=== PATIENT | male | born 1955 | race American Indian/Alaskan Native ===

== ENCOUNTER 2016-10-17 03:09 | Inpatient (IN) | payer MEDICARE ==
[2016-10-17] MEDS ORDERED: NACL 0.9% 1000 ML 1,000 ML IV ONE ×6 (03:18→09:20)
--- NOTE | 2016-10-17 04:01 | Emergency Department Report ---
ED Altered Mental Status HPI - General Chief Complaint: Altered Mental Status Stated Complaint: UNRESPONSIVE Time Seen by Provider: 10/17/16 03:17 Source: EMS Mode of arrival: Stretcher Limitations: Altered Mental Status - History of Present Illness Initial Comments: 61-year-old male presents to the emergency department via EMS from a local snf after reportedly being found unresponsive. EMS states that the patient is unresponsive to any stimuli. Per report, the patient is nonverbal and minimally responsive at baseline. Further history is unable to be obtained from the patient due to his clinical condition. MD Complaint: altered mental status, decreased responsiveness -: unknown Severity: severe Consistency of Symptoms: constant Context: history of similar presen Treatments Prior to Arrival: IV fluid - Related Data Allergies Allergy/AdvReac Type Severity Reaction Status Date / Time No Known Allergies Allergy Verified 10/17/16 04:31 ED Review of Systems ROS: Stated complaint: UNRESPONSIVE Other details as noted in HPI Comment: Unobtainable due to pts medical conditions ED Past Medical Hx - Past Medical History Previous Medical History?: Yes Hx Hypertension: Yes Additional medical history: Multiple sclerosis - Surgical History Additional Surgical History: Unknown - Family History Family history: other (unknown) - Social History Smoking Status: Unknown if ever smoked ED Physical Exam - General Limitations: Altered Mental Status General appearance: obtunded (apparently at baseline) - Head Head exam: Present: atraumatic, normocephalic - Eye Eye exam: Present: normal appearance, PERRL, EOMI - ENT ENT exam: Present: normal exam, normal orophraynx, mucous membranes moist - Neck Neck exam: Present: normal inspection, full ROM. Absent: tenderness - Respiratory Respiratory exam: Present: normal lung sounds bilaterally. Absent: respiratory distress - Cardiovascular Cardiovascular Exam: Present: regular rate, normal rhythm, normal heart sounds - GI/Abdominal GI/Abdominal exam: Present: soft, normal bowel sounds. Absent: distended, tenderness - Extremities Exam Extremities exam: Present: normal inspection. Absent: full ROM (contractures noted to all 4 extremities) - Back Exam Back exam: Present: normal inspection, full ROM. Absent: tenderness - Neurological Exam Neurological exam: Present: other (patient unresponsive to verbal or painful stimuli.) - Skin Skin exam: Present: warm, dry, other (multiple stage IV decubitus ulcers noted to bilateral hips, left heel, bilateral buttocks, and sacral region) ED Course Vital Signs 10/17/16 03:18 Pulse Rate 102 H Respiratory 10 L Rate Blood Pressure 65/30 O2 Sat by Pulse 99 Oximetry - Lab Data Result diagrams: 10/17/16 04:28 10/17/16 04:28 Lab Results 10/17/16 10/17/16 10/17/16 Range/Units 04:28 04:28 04:28 WBC 42.5 H* (4.5-11.0) K/mm3 RBC 3.27 L (3.65-5.03) M/mm3 Hgb 7.6 L (11.8-15.2) gm/dl Hct 25.0 L (35.5-45.6) % MCV 77 L (84-94) fl MCH 23 L (28-32) pg MCHC 31 L (32-34) % RDW 17.4 H (13.2-15.2) % Plt Count 892 H (140-440) K/mm3 [place] % (Auto) 5.0 (0.0-7.3) % Eos % (Auto) 0.0 (0.0-4.3) % Potter # 2.1 H (0.0-0.8) K/mm3 Seg Neutrophils # 38.4 H (1.8-7.7) K/mm3 Sodium 141 (137-145) mmol/L Potassium 5.1 H (3.6-5.0) mmol/L Chloride 102.2 (98-107) mmol/L Carbon Dioxide 21 L (22-30) mmol/L Anion Gap 23 mmol/L BUN 58 H (9-20) mg/dL Creatinine 2.6 H (0.8-1.5) mg/dL Estimated GFR 30 ml/min BUN/Creatinine Ratio 22.30 % Glucose 93 (75-100) mg/dL Lactic Acid 2.6 H* (0.7-2.0) mmol/L Calcium 7.9 L (8.4-10.2) mg/dL Total Bilirubin 0.4 (0.1-1.2) mg/dL AST 87 H (5-40) units/L ALT 65 H (7-56) units/L Alkaline Phosphatase 102 (35-129) units/L Total Protein 7.4 (6.3-8.2) g/dL Albumin 2.2 L (3.9-5) g/dL Albumin/Globulin Ratio 0.4 % - Radiology Data Radiology results: image reviewed interpreted by me: Chest x-ray reveals no acute cardiopulmonary abnormality. - Medical Decision Making Lab and imaging results reviewed. Sanderson catheter has been placed by nursing staff with no urine output. Patient's blood pressure has increased to systolic in the 70s with less than 1 L of fluid administered. Giving additional IV fluids. It appears that the patient is severely dehydrated and malnourished from his physical exam and lab findings. Patient is to be admitted by the hospitalist for fluid rehydration. - Differential Diagnosis debility, occult infection, dehydration Critical care attestation.: If time is entered above; I have spent that time in minutes in the direct care of this critically ill patient, excluding procedure time. ED Disposition Clinical Impression: Severe dehydration Acute renal failure Qualifiers: Acute renal failure type: with acute tubular necrosis Qualified Code(s): N17.0 - Acute kidney failure with tubular necrosis Disposition: OP ADMITTED IP TO THIS HOSP Is pt being admited?: Yes Condition: Stable Time of Disposition: 05:52
[2016-10-17 05:04] LABS: Hemoglobin 7.6 gm/dl (11.8-15.2); Mean Corpuscular HGB Conc 31 % (32-34); Mean Corpuscular Volume 77 fl (84-94); Platelet Count 892 K/mm3 (140-440); Red Blood Count 3.27 M/mm3 (3.65-5.03); Red Cell Distribution Width 17.4 % (13.2-15.2)
[2016-10-17 05:06] LABS: Mean Corpuscular Hemoglobin 23 pg (28-32)
[2016-10-17 05:07] LABS: White Blood Count 42.5 K/mm3 (4.5-11.0)
[2016-10-17 05:11] LABS: Albumin 2.2 g/dL (3.9-5); Albumin/Globulin Ratio 0.4 %; BUN/Creatinine Ratio 22.3; Bilirubin,Total 0.4 mg/dL (0.1-1.2); Calcium 7.9 mg/dL (8.4-10.2); Chloride 102.2 mmol/L (98-107); Potassium 5.1 mmol/L (3.6-5.0); Total Protein 7.4 g/dL (6.3-8.2)
[2016-10-17 06:41] LABS: Anisocytosis 1+; Basophils % (Manual) 0 % (0.0-1.8); Blastocytes % (Manual) 0 %; Eosinophils % (Manual) 0 % (0.0-4.3); Hypochromasia 1+; Total Cells Counted Percent 2.5
[2016-10-17 06:42] LABS: Elliptocytes Rare; Polychromasia Rare
[2016-10-17 06:43] LABS: Dohle Bodies 1+
[2016-10-17 06:44] LABS: Diff Status Complete; Platelet Estimate Appears Increased
--- NOTE | 2016-10-17 07:22 | XRay Report ---
AP CHEST: HISTORY: Altered mental status AP view of the chest demonstrates a normal mediastinal and cardiac contour with clear lungs and normal bony and soft tissue structures. IMPRESSION: Unremarkable AP chest.
--- NOTE | 2016-10-17 09:07 | Admit Criteria Form ---
Admission Criteria Documentation: MENTAL STATUS CHANGE Clinical Indications for Inpatient Care (Place 'X' for any and all applicable criteria): Ongoing inpatient care may be needed for ANY ONE of the following(1)(2)(3)(5)(6) : [X ]I. Suspected serious etiology (eg, medical disorder, NET TRAINER event) of mental status change [ ]II. Danger to self or others not manageable at lower level of care [ ]III. Grave disability (eg, inability to perform self care necessary at lower level of care) [ ]IV. Agitation or inappropriate behavior interfering with care for primary condition (eg, attempting to discontinue lines or drains prematurely, unable to cooperate with respiratory care) [ ]V. Delirium [A] [D][E] as described by ANY ONE of the following(26): [ ]a) Delirium due to alcohol or sedative [F] withdrawal [ ]b) Delirium of uncertain etiology that has not responded to appropriate empiric treatment [ ]c) Delirium that prevents performance of a life-sustaining function (eg, feeding or hydrating oneself) [ X]. General contraindications and/or Inappropriate clinical situations for Observational Care in patients with Mental Status Change, when ANY ONE of the following is required: [X ]a) Prediction of prolongation of LOS based on ANY ONE of the following may be considered as a contraindication for observational care 2, 3, 4, 5, 6, 7, 8, 9, 10, 11 [ ]i) Age > 65 yrs. [ X]ii) Patient arriving by ambulance [ ]iii) Patient with high acuity [ ]iv) Patient requiring vital sign monitoring [ ]v) Patient on IV medication [ ]b) Systolic blood pressures 180mmHg 3,12 [ ]c) Patient with altered mental status including delirium and other alteration of consciousness, (3) [ ]d) Patient whose discharge disposition will be to a senior living home or rehabilitation home should not be managed in Emergency Department Observation Unit. CMS rule requires 3 days hospital stay before such placement.3,13 [ ]e) Patient with failure to thrive due to broad array of etiologies 3,16,17 [ ]f) Inability to ambulate 3,14 Extended stay beyond goal length of stay for the primary condition may be needed until ALL of the following are present(3)(5): [ ]a) Underlying medical etiology of mental status change is absent, or has been established and adequately treated [ ]b) Danger to self or others is absent or manageable at lower level of care. [ ]c) Behavior crisis management, including physical or chemical restraints, is not required or available at lower level of car [ ]d) Substance or alcohol withdrawal is absent or manageable at lower level of care. [ ]e) Behavioral symptoms (eg, agitation, somnolence, inappropriate behavior) are absent, or are manageable at lower level of care. The original [facility] [employer] content created by [facility] has been revised. The portions of the content which have been revised are identified through the use of italic text or in bold, and [facility] has neither reviewed nor approved the modified material. All other unmodified content is copyright [facility]. Please see references footnoted in the original [facility] edition 2016 Admission Criteria Met: Yes
[2016-10-17] MEDS ORDERED: DULCOLAX PR PRN (09:30)
[2016-10-17] MEDS ORDERED: MILK OF MAGNESIA PO PRN (09:30)
[2016-10-17] MEDS ORDERED: TYLENOL PO PRN (09:30)
[2016-10-17] MEDS ORDERED: ZOFRAN IV PRN (09:30)
[2016-10-17] MEDS: LEVAQUIN 500MG/100ML 100 ML IV SCH (09:53)
[2016-10-17] MEDS ORDERED: NACL 0.9% 1000 ML 1,000 ML IV SCH (10:00)
[2016-10-17] MEDS ORDERED: VANCOMYCIN PHARMACY TO DOSE IV SCH (10:00)
[2016-10-17] MEDS ORDERED: ZOSYN/NS 4.5GM/100ML 100 ML IV SCH (10:00)
--- NOTE | 2016-10-17 10:11 | History and Physical Report ---
History of Present Illness Chief complaint: Low blood pressure History of present illness: Patient is obtunded therefore history was taken from his next of kin, his baby' s mother Goran is a 61-year-old male with past medical history of multiple sclerosis which she's had for over 30 years. He is usually bed bound and has contractures lives with his son's mother. At baseline he is bedbound contracted , but his mind is sharp, he has good memory, he is very communicative and has good judgment. Other notes he was placed in a alf for a short period of time for RESPITE, during this period he has been noted to be less responsive , more fatigued, more tired. Prior to being sent to the hospital he was noted to have low blood pressure low pulse rate and completely not responsive. Of note he has recurrence decubitus ulcers all over his body. He's had these months now since May, his family notes that he have completely resolved in the past only to recur. Past History Past Medical History: other (multiple sclerosis) Past Surgical History: Other (left knee surgery) Social history: no significant social history, lives with family Family history: no significant family history Medications and Allergies Allergies Allergy/AdvReac Type Severity Reaction Status Date / Time No Known Allergies Allergy Verified 10/17/16 04:31 Home Medications Medication Instructions Recorded Confirmed Last Taken Type Baclofen [Lioresal] 10 mg PO TID 10/17/16 10/17/16 Unknown History Lisinopril [Zestril] 20 mg PO QDAY 10/17/16 10/17/16 Unknown History Morphine Sulfate [Morphine Sulfate 30 mg PO Q8H PRN 10/17/16 10/17/16 Unknown History ER] Ondansetron [Zofran Odt] 4 mg PO Q4H 10/17/16 10/17/16 Unknown History Pregabalin [Lyrica] 100 mg PO BID 10/17/16 10/17/16 Unknown History Active Meds: Active Medications Acetaminophen (Tylenol) 650 mg PO Q4H PRN PRN Reason: Pain MILD(1-3)/Fever >100.5/CARMEN Bisacodyl (Dulcolax) 10 mg [place] QDAY PRN PRN Reason: Constipation unrelieved by MOM Sodium Chloride (Nacl 0.9% 1000 Ml) 1,000 mls @ 150 mls/hr IV DIRECT SHIKHA Sodium Chloride (Nacl 0.9% 1000 Ml) 1,000 mls @ 999 mls/hr IV ONCE ONE Stop: 10/17/16 10:19 Last Admin: 10/17/16 09:57 Dose: 999 mls/hr Levofloxacin/Dextrose (Levaquin 500mg/100ml) 100 mls @ 100 mls/hr IV Q24H SHIKHA Last Admin: 10/17/16 09:53 Dose: 100 mls/hr Piperacillin Sod/Tazobactam Sod (Zosyn/Ns 2.25 Gm/50ml) 50 mls @ 100 mls/hr IV Q8HR SHIKHA Vancomycin HCl (Vancomycin/Ns 500 Mg/100 Ml) 100 mls @ 66.667 mls/hr IV ONCE.ED ONE Stop: 10/17/16 12:29 Magnesium Hydroxide (Milk Of Magnesia) 30 ml PO Q4H PRN PRN Reason: Constipation Ondansetron HCl (Zofran) 4 mg IV Q8H PRN PRN Reason: N/V unrelieved by Sanna Vancomycin HCl (Vancomycin Pharmacy To Dose) 1 each IV PKCONSULT SHIKHA PRN Reason: Protocol Review of Systems ROS unobtainable: due to mental status Exam - Physical Exam Narrative exam: General: Patient is obtunded, nonresponsive HEENT: MMM, EOMI cardiac: S1-S2 heard lungs: clear to auscultation, abdomen: soft, nontender, nondistended bowel sounds positive extremities: no edema clubbing or cyanosis Skin: Multiple decubitus ulcers of different stages in bilateral hip bilateral Botox, left heel, sacrum Neuro: Contractures in all 4 extremities, nonresponsive - Constitutional Vitals: Temp Pulse Resp BP Pulse Ox 91 H 12 76/36 92 10/17/16 09:00 10/17/16 09:16 10/17/16 09:00 10/17/16 09:16 Results - Labs CBC & Chem 7: 10/17/16 04:28 10/17/16 04:28 Labs: Laboratory Last Values WBC 42.5 K/mm3 (4.5-11.0) H* 10/17/16 04:28 RBC 3.27 M/mm3 (3.65-5.03) L 10/17/16 04:28 Hgb 7.6 gm/dl (11.8-15.2) L 10/17/16 04:28 Hct 25.0 % (35.5-45.6) L 10/17/16 04:28 MCV 77 fl (84-94) L 10/17/16 04:28 MCH 23 pg (28-32) L 10/17/16 04:28 MCHC 31 % (32-34) L 10/17/16 04:28 RDW 17.4 % (13.2-15.2) H 10/17/16 04:28 Plt Count 892 K/mm3 (140-440) H 10/17/16 04:28 [place] % (Auto) 5.0 % (0.0-7.3) 10/17/16 04:28 Eos % (Auto) 0.0 % (0.0-4.3) 10/17/16 04:28 [place] # 2.1 K/mm3 (0.0-0.8) H 10/17/16 04:28 Add Manual Diff Complete 10/17/16 04:28 Total Counted 200 10/17/16 04:28 Seg Neuts % (Manual) 94.5 % (40.0-70.0) H 10/17/16 04:28 Band Neutrophils % 0 % 10/17/16 04:28 Lymphocytes % (Manual) 2.5 % (13.4-35.0) L 10/17/16 04:28 Reactive Lymphs % (Man) 0 % 10/17/16 04:28 Monocytes % (Manual) 2.5 % (0.0-7.3) 10/17/16 04:28 Eosinophils % (Manual) 0 % (0.0-4.3) 10/17/16 04:28 Basophils % (Manual) 0 % (0.0-1.8) 10/17/16 04:28 Metamyelocytes % 0 % 10/17/16 04:28 Myelocytes % 0.5 % 10/17/16 04:28 Promyelocytes % 0 % 10/17/16 04:28 Blast Cells % 0 % 10/17/16 04:28 Nucleated RBC % Not Reportable 10/17/16 04:28 Seg Neutrophils # 38.4 K/mm3 (1.8-7.7) H 10/17/16 04:28 Seg Neutrophils # Man 40.2 K/mm3 (1.8-7.7) H 10/17/16 04:28 Band Neutrophils # 0.0 K/mm3 10/17/16 04:28 Lymphocytes # (Manual) 1.1 K/mm3 (1.2-5.4) L 10/17/16 04:28 Abs React Lymphs (Man) 0.0 K/mm3 10/17/16 04:28 Monocytes # (Manual) 1.1 K/mm3 (0.0-0.8) H 10/17/16 04:28 Eosinophils # (Manual) 0.0 K/mm3 (0.0-0.4) 10/17/16 04:28 Basophils # (Manual) 0.0 K/mm3 (0.0-0.1) 10/17/16 04:28 Metamyelocytes # 0.0 K/mm3 10/17/16 04:28 Myelocytes # 0.2 K/mm3 10/17/16 04:28 Promyelocytes # 0.0 K/mm3 10/17/16 04:28 Blast Cells # 0.0 K/mm3 10/17/16 04:28 WBC Morphology Not Reportable 10/17/16 04:28 Hypersegmented Neuts Not Reportable 10/17/16 04:28 Hyposegmented Neuts Not Reportable 10/17/16 04:28 Hypogranular Neuts Not Reportable 10/17/16 04:28 Smudge Cells Not Reportable 10/17/16 04:28 Toxic Granulation Not Reportable 10/17/16 04:28 Toxic Vacuolation Not Reportable 10/17/16 04:28 Dohle Bodies 1+ 10/17/16 04:28 Pelger-Huet Anomaly Not Reportable 10/17/16 04:28 Erich Rods Not Reportable 10/17/16 04:28 Platelet Estimate Appears increased 10/17/16 04:28 Clumped Platelets Not Reportable 10/17/16 04:28 Plt Clumps, EDTA Not Reportable 10/17/16 04:28 Large Platelets Not Reportable 10/17/16 04:28 Giant Platelets Not Reportable 10/17/16 04:28 Platelet Satelliting Not Reportable 10/17/16 04:28 Plt Morphology Comment Not Reportable 10/17/16 04:28 RBC Morphology Not Reportable 10/17/16 04:28 Dimorphic RBCs Not Reportable 10/17/16 04:28 Polychromasia Rare 10/17/16 04:28 Hypochromasia 1+ 10/17/16 04:28 Poikilocytosis Not Reportable 10/17/16 04:28 Anisocytosis 1+ 10/17/16 04:28 Microcytosis Not Reportable 10/17/16 04:28 Macrocytosis Not Reportable 10/17/16 04:28 Spherocytes Not Reportable 10/17/16 04:28 Pappenheimer Bodies Not Reportable 10/17/16 04:28 Sickle Cells Not Reportable 10/17/16 04:28 Target Cells Not Reportable 10/17/16 04:28 Tear Drop Cells Not Reportable 10/17/16 04:28 Ovalocytes Not Reportable 10/17/16 04:28 Helmet Cells Not Reportable 10/17/16 04:28 [place] Bodies Not Reportable 10/17/16 04:28 [place] Rings Not Reportable 10/17/16 04:28 [place] Cells Not Reportable 10/17/16 04:28 Bite Cells Not Reportable 10/17/16 04:28 Crenated Cell Not Reportable 10/17/16 04:28 Elliptocytes Rare 10/17/16 04:28 Acanthocytes (Spur) Not Reportable 10/17/16 04:28 Rouleaux Not Reportable 10/17/16 04:28 Hemoglobin C Crystals Not Reportable 10/17/16 04:28 Schistocytes Not Reportable 10/17/16 04:28 Malaria parasites Not Reportable 10/17/16 04:28 [place] Bodies Not Reportable 10/17/16 04:28 Hem Pathologist Commnt No 10/17/16 04:28 Sodium 141 mmol/L (137-145) 10/17/16 04:28 Potassium 5.1 mmol/L (3.6-5.0) H 10/17/16 04:28 Chloride 102.2 mmol/L (98-107) 10/17/16 04:28 Carbon Dioxide 21 mmol/L (22-30) L 10/17/16 04:28 Anion Gap 23 mmol/L 10/17/16 04:28 BUN 58 mg/dL (9-20) H 10/17/16 04:28 Creatinine 2.6 mg/dL (0.8-1.5) H 10/17/16 04:28 Estimated GFR 30 ml/min 10/17/16 04:28 BUN/Creatinine Ratio 22.30 % 10/17/16 04:28 Glucose 93 mg/dL (75-100) 10/17/16 04:28 Lactic Acid 2.6 mmol/L (0.7-2.0) H* 10/17/16 04:28 Calcium 7.9 mg/dL (8.4-10.2) L 10/17/16 04:28 Total Bilirubin 0.4 mg/dL (0.1-1.2) 10/17/16 04:28 AST 87 units/L (5-40) H 10/17/16 04:28 ALT 65 units/L (7-56) H 10/17/16 04:28 Alkaline Phosphatase 102 units/L (35-129) 10/17/16 04:28 Total Protein 7.4 g/dL (6.3-8.2) 10/17/16 04:28 Albumin 2.2 g/dL (3.9-5) L 10/17/16 04:28 Albumin/Globulin Ratio 0.4 % 10/17/16 04:28 - Imaging and Cardiology Chest x-ray: image reviewed (no infiltrate) Assessment and Plan Assessment and plan: This is a 61-year-old man who was sent from alf for hypotension and altered mental status 1. Sepsis Source is most likely from multiple decubitus ulcers, obtain blood cultures and urine cultures, chest x-ray shows no infiltrates Broad-spectrum antibiotics, follow-up cultures, he patient's blood pressure improves and surgery consults for debridements We'll give him a total of 6 L bolus and then put on standing IV fluids, PICC line team to place PICC line, patient may need pressors if blood pressure does not improve 2. Metabolic encephalopathy Treat underlying cause, treat sepsis and hypotension aggressively 3. Acute kidney injury Continue IV fluids, multiple attempts to place Sanderson were unsuccessful, patient appears to have a stricture, urology consulted 4. Hyperkalemia Most likely due to acute kidney injury and obstructive uropathy, urology called for Sanderson placement, continue IV fluids 5. Multiple decubitus ulcers Wound care consult, if patient's improves, we'll consult surgery for debridement of decubitus ulcers 6. Anemia transfuse to keep Hg above 10 I have spoken in length with his next of kin/ POA Aissatou Valdez and, at . Even though she understands that he has very poor prognosis, she states that even within the past week he has stated that he wants to be full code and have aggressive treatment. Therefore patient will be kept full code, admitted to ICU for treatment of sepsis Critical care time spent 35 minutes Plan of care discussed with patient/family: Yes
[2016-10-17 10:54] LABS: ISTAT Base Excess -12; ISTAT HCO3 15.8; ISTAT PCO2 40.9 (35-45); ISTAT PH 7.195 (7.35-7.45); ISTAT PO2 66 (80-105); ISTAT SO2 87; ISTAT TCO2 17
[2016-10-17] MEDS ORDERED: VANCOMYCIN/NS 500 MG/100 ML 100 ML IV ONE (11:00)
[2016-10-17] MEDS: ZOSYN/NS 2.25 GM/50ML 50 ML IV SCH ×3 (11:19→22:30)
--- NOTE | 2016-10-17 11:19 | Consultation ---
History of Present Illness - Reason for Consult Consult date: 10/17/16 - History of Present Illness Goran is a 61-year-old male with past medical history of multiple sclerosis which she's had for over 30 years. He is usually bed bound and has contractures lives with his son's mother. At baseline he is bedbound contracted , but his mind is sharp, he has good memory, he is very communicative and has good judgment. Other notes he was placed in a [facility] for a short period of time for RESPITE, during this period he has been noted to be less responsive , more fatigued, more tired. Prior to being sent to the hospital he was noted to have low blood pressure low pulse rate and completely not responsive. Of note he has recurrence decubitus ulcers all over his body. per nurse - pt had non draining pedroza - removed no pedroza at time of exam wire pedroza & attempt at [facility] [place] tip cath unsuccessful spt place with cloudy urine returned (send for culture) A/P urethral stricture vs pedroza trauma continue spt needs cysto when stable Past History Past Medical History: other (multiple sclerosis) Past Surgical History: Other (left knee surgery) Social history: no significant social history, lives with family Family history: no significant family history Medications and Allergies Allergies Allergy/AdvReac Type Severity Reaction Status Date / Time No Known Allergies Allergy Verified 10/17/16 04:31 Home Medications Medication Instructions Recorded Confirmed Last Taken Type Baclofen [Lioresal] 10 mg PO TID 10/17/16 10/17/16 Unknown History Lisinopril [Zestril] 20 mg PO QDAY 10/17/16 10/17/16 Unknown History Morphine Sulfate [Morphine Sulfate 30 mg PO Q8H PRN 10/17/16 10/17/16 Unknown History ER] Ondansetron [Zofran Odt] 4 mg PO Q4H 10/17/16 10/17/16 Unknown History Pregabalin [Lyrica] 100 mg PO BID 10/17/16 10/17/16 Unknown History Active Meds: Active Medications Acetaminophen (Tylenol) 650 mg PO Q4H PRN PRN Reason: Pain MILD(1-3)/Fever >100.5/CARMEN Bisacodyl (Dulcolax) 10 mg [place] QDAY PRN PRN Reason: Constipation unrelieved by MOM Sodium Chloride (Nacl 0.9% 1000 Ml) 1,000 mls @ 150 mls/hr IV DIRECT SHIKHA Levofloxacin/Dextrose (Levaquin 500mg/100ml) 100 mls @ 100 mls/hr IV Q24H [facility] Last Admin: 10/17/16 09:53 Dose: 100 mls/hr Piperacillin Sod/Tazobactam Sod (Zosyn/Ns 2.25 Gm/50ml) 50 mls @ 100 mls/hr IV Q8HR [facility] Vancomycin HCl (Vancomycin/Ns 500 Mg/100 Ml) 100 mls @ 66.667 mls/hr IV ONCE.ED ONE Stop: 10/17/16 12:29 Magnesium Hydroxide (Milk Of Magnesia) 30 ml PO Q4H PRN PRN Reason: Constipation Ondansetron HCl (Zofran) 4 mg IV Q8H PRN PRN Reason: N/V unrelieved by Sanna Vancomycin HCl (Vancomycin Pharmacy To Dose) 1 each IV PKCONSULT SHIKHA PRN Reason: Protocol Exam - Constitutional Vitals: Temp Pulse Resp BP Pulse Ox 89 10 L 64/35 100 10/17/16 11:00 10/17/16 11:00 10/17/16 11:00 10/17/16 11:00 Results - Labs CBC & Chem 7: 10/17/16 04:28 10/17/16 04:28 Labs: Abnormal lab results 10/17/16 Range/Units 10:45 POC ABG pH 7.195 L (7.35-7.45) POC ABG pO2 66 L (80-105)
[2016-10-17 12:16] LABS: Bilirubin,Urine NEG (Negative); Blood,Urine MOD (Negative); Ketones,Urine NEG (Negative); Leukocyte Esterase,Urine MOD (Negative); Nitrite,Urine NEG (Negative); Urobilinogen,Urine < 2.0 mg/dL (<2.0)
[2016-10-17 12:23] LABS: WBC,Urine > 182.0 /HPF (0.0-6.0)
[2016-10-17] MEDS ORDERED: NACL 0.9% 500 ML 500 ML IV ONE (12:42)
--- NOTE | 2016-10-17 14:12 | XRay Report ---
PORTABLE CHEST INDICATION: Left arm PICC placement. COMPARISON: 3:27 AM earlier today. FINDINGS: Portable, frontal chest radiograph, 1:55 PM, 10/17/2016 demonstrates new left upper extremity PICC tip at the cavoatrial junction. Mild increased right basilar atelectasis and subtle bibasilar haziness/possible layering pleural fluid. New obscuration of entire left and part right hemidiaphragm. Stable cardiomediastinal silhouette. Right hemidiaphragm again elevated. EKG leads. Stable bones. CONCLUSION: 1. Interval uncomplicated left upper extremity PICC placement. 2. New hazy bibasilar opacities, as described. Thank you for the opportunity to participate in this patient's care.
[2016-10-17] MEDS: LEVOPHED DRIP 4 MG/NS 250 ML 250 ML IV SCH ×3 (15:45→23:47)
[2016-10-17] MEDS ORDERED: NACL 0.9% 500 ML IR ONE ×2 (16:47→18:31)
[2016-10-17] MEDS: SODIUM BICARBONATE 150 MEQ in D5W 1,000 ML IV SCH (17:27)
[2016-10-17] MEDS ORDERED: NACL 0.9% 500 ML 500 ML ONE (18:31)
[2016-10-17] MEDS ORDERED: NACL 0.9% 1000 ML 1,000 ML ONE (21:42)
--- NOTE | 2016-10-18 00:58 | Consultation ---
REASON FOR CONSULTATION: Urinary retention. REFERRING PHYSICIANS: Michelle Welch MD HISTORY OF PRESENT ILLNESS: This 61-year-old gentleman presented to the Emergency Room from a local correction after being found unresponsive. He was brought to the Emergency Room, resuscitated with fluids and is somewhat more arousable. PAST MEDICAL HISTORY: He has a history of multiple sclerosis with contractures, decubitus ulcers, hypertension. PAST SURGICAL HISTORY: Unremarkable. ALLERGIES: He has no known drug allergies. PHYSICAL EXAMINATION: GENERAL: The patient is not responsive. VITAL SIGNS: BP is 76/36, respirations are 12, pulse 91. ABDOMEN: Contracted abdomen, cachectic with contractures and decubitus ulcers, bandages in place. GENITOURINARY: Circumcised phallus. Testes descended. Attempts to place a 0.035 Glidewire were unsuccessful. I could palpate his bladder. He was given lidocaine gel, a small 5 mm incision in the suprapubic area. Suprapubic catheter was placed with cloudy urine, which was sent for urine culture. The 2-0 silk was used to secure the suprapubic catheter, 2-inch silk tape was also used on the abdomen to try to provide security as well. 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 Continue the catheter at this point, needs cystoscopy once stable. JOB# [id number] ISIDRO/GHAZALA
[2016-10-18] MEDS: LEVOPHED DRIP 4 MG/NS 250 ML 250 ML IV SCH ×4 (04:08→11:37)
[2016-10-18 05:32] LABS: ISTAT Base Excess -11; ISTAT PCO2 52.9 (35-45); ISTAT PH 7.139 (7.35-7.45); ISTAT PO2 101 (80-105); ISTAT SO2 95; ISTAT TCO2 20
[2016-10-18] MEDS ORDERED: SODIUM BICARBONATE IV STA (06:20)
[2016-10-18] MEDS: ZOSYN/NS 2.25 GM/50ML 50 ML IV SCH ×3 (06:22→22:17)
[2016-10-18 08:48] LABS: Hematocrit 34.2 % (35.5-45.6); Hemoglobin 10.7 gm/dl (11.8-15.2); Mean Corpuscular HGB Conc 31 % (32-34); Mean Corpuscular Volume 79 fl (84-94); Platelet Count 647 K/mm3 (140-440); Red Blood Count 4.33 M/mm3 (3.65-5.03); Red Cell Distribution Width 17.3 % (13.2-15.2)
[2016-10-18 08:57] LABS: Mean Corpuscular Hemoglobin 25 pg (28-32); White Blood Count 36.3 K/mm3 (4.5-11.0)
[2016-10-18 09:03] LABS: Albumin 1.8 g/dL (3.9-5); Albumin/Globulin Ratio 0.5 %; Bilirubin,Total 0.5 mg/dL (0.1-1.2); Calcium 6.3 mg/dL (8.4-10.2); Chloride 115.1 mmol/L (98-107); Potassium 3.5 mmol/L (3.6-5.0); Total Protein 5.6 g/dL (6.3-8.2)
[2016-10-18 10:21] LABS: Basophils % (Manual) 0 % (0.0-1.8); Blastocytes % (Manual) 0 %; Eosinophils % (Manual) 0 % (0.0-4.3); Total Cells Counted Percent 1.5
[2016-10-18 10:22] LABS: Anisocytosis 1+; Diff Status Complete; Dohle Bodies 1+; Elliptocytes Rare; Hypochromasia 1+; Polychromasia Rare
[2016-10-18 10:23] LABS: Platelet Estimate Appears Increased
[2016-10-18] MEDS: LEVAQUIN 500MG/100ML 100 ML IV SCH (10:40)
[2016-10-18] MEDS: SODIUM BICARBONATE 150 MEQ in D5W 1,000 ML IV SCH (10:40)
--- NOTE | 2016-10-18 12:27 | Consultation ---
History of Present Illness - Reason for Consult Consult date: 10/18/16 Sepsis with shock Requesting physician: DENA MCNULTY - History of Present Illness 61 y/o male from a hospice respit, admitted with acute renal failure, hypotension, and altered mental status. Patient is completely unresponsive and not able to give any history. From chart and nursing facility, patient has end stage MS and was on home hospice but as a full code. He was brought to a respit facitlity to be there for 5 days and then the plan was to return home. Patient presented to the ED on Monday night, contracted with multiple decubs. Picc line was placed and patient started on levophed drip which he is currently at max dosing. He has very slow breaths at about 5-8 per minute. He remains unresponsive. He is on bicarb drip and abx therapy. No family present at the bedside. Past History Past Medical History: other (multiple sclerosis) Past Surgical History: Other (left knee surgery) Social history: no significant social history, lives with family Family history: no significant family history Medications and Allergies Allergies Allergy/AdvReac Type Severity Reaction Status Date / Time No Known Allergies Allergy Verified 10/17/16 04:31 Home Medications Medication Instructions Recorded Confirmed Last Taken Type Baclofen [Lioresal] 10 mg PO TID 10/17/16 10/17/16 Unknown History Lisinopril [Zestril] 20 mg PO QDAY 10/17/16 10/17/16 Unknown History Morphine Sulfate [Morphine Sulfate 30 mg PO Q8H PRN 10/17/16 10/17/16 Unknown History ER] Ondansetron [Zofran Odt] 4 mg PO Q4H 10/17/16 10/17/16 Unknown History Pregabalin [Lyrica] 100 mg PO BID 10/17/16 10/17/16 Unknown History Active Meds: Active Medications Acetaminophen (Tylenol) 650 mg PO Q4H PRN PRN Reason: Pain MILD(1-3)/Fever >100.5/CARMEN Bisacodyl (Dulcolax) 10 mg [place] QDAY PRN PRN Reason: Constipation unrelieved by MOM Levofloxacin/Dextrose (Levaquin 500mg/100ml) 100 mls @ 100 mls/hr IV Q24H SHIKHA Last Admin: 10/18/16 10:40 Dose: 100 mls/hr Piperacillin Sod/Tazobactam Sod (Zosyn/Ns 2.25 Gm/50ml) 50 mls @ 100 mls/hr IV Q8HR SHIKHA Last Admin: 10/18/16 06:22 Dose: 100 mls/hr Sodium Bicarbonate 150 meq/ (Dextrose) 1,150 mls @ 75 mls/hr IV DIRECT SHIKHA Last Admin: 10/18/16 10:40 Dose: 75 mls/hr Norepinephrine (Levophed Drip 4 Mg/Ns 250 Ml) 250 mls @ 7.5 mls/hr IV TITR SHIKHA ; 2 MCG/MIN PRN Reason: Protocol Last Admin: 10/18/16 11:37 Dose: 112.5 mls/hr Vancomycin HCl (Vancomycin/Ns 500 Mg/100 Ml) 100 mls @ 66.667 mls/hr IV Q24HR SHIKHA Norepinephrine 8 mg/ Sodium (Chloride) 250 mls @ 3.75 mls/hr IV TITR SHIKHA; 2 MCG /MIN PRN Reason: Protocol Magnesium Hydroxide (Milk Of Magnesia) 30 ml PO Q4H PRN PRN Reason: Constipation Ondansetron HCl (Zofran) 4 mg IV Q8H PRN PRN Reason: N/V unrelieved by Sanna Vancomycin HCl (Vancomycin Pharmacy To Dose) 1 each IV PKCONSULT SHIKHA PRN Reason: Protocol Review of Systems ROS unobtainable: due to mental status Exam - Constitutional Vitals: Temp Pulse Resp BP Pulse Ox 98.3 F 85 8 L 115/50 100 10/18/16 05:46 10/18/16 11:45 10/18/16 11:45 10/18/16 11:45 10/18/16 11:45 General appearance: Present: other (unresponsive) - Respiratory Respiratory: bilateral: diminished - Cardiovascular Rhythm: regular - Extremities Extremities: abnormal Extremity abnormal: other (contractures of all extremities) - Abdominal General gastrointestinal: Present: soft Male genitourinary: Present: deferred - Rectal Rectal Exam: deferred - Integumentary Integumentary: Present: dry - Musculoskeletal Musculoskeletal: other (contractures) Results - Labs CBC & Chem 7: 10/18/16 08:30 10/18/16 08:30 Labs: Abnormal lab results 10/17/16 10/17/16 10/18/16 Range/Units 11:57 15:37 05:17 WBC (4.5-11.0) K/mm3 Hgb (11.8-15.2) gm/dl Hct (35.5-45.6) % MCV (84-94) fl MCH (28-32) pg MCHC (32-34) % RDW (13.2-15.2) % Plt Count (140-440) K/mm3 Seg Neuts % (Manual) (40.0-70.0) % Lymphocytes % (Manual) (13.4-35.0) % Seg Neutrophils # Man (1.8-7.7) K/mm3 Lymphocytes # (Manual) (1.2-5.4) K/mm3 POC ABG pH 7.139 L (7.35-7.45) POC ABG pCO2 52.9 H (35-45) Sodium (137-145) mmol/L Potassium (3.6-5.0) mmol/L Chloride (98-107) mmol/L Carbon Dioxide (22-30) mmol/L BUN (9-20) mg/dL Creatinine (0.8-1.5) mg/dL Glucose (75-100) mg/dL Calcium (8.4-10.2) mg/dL AST (5-40) units/L Total Protein (6.3-8.2) g/dL Albumin (3.9-5) g/dL Urine WBC (Auto) > 182.0 H (0.0-6.0) /HPF Crossmatch See Detail 10/18/16 10/18/16 Range/Units 08:30 08:30 WBC 36.3 H (4.5-11.0) K/mm3 Hgb 10.7 L D (11.8-15.2) gm/dl Hct 34.2 L D (35.5-45.6) % MCV 79 L (84-94) fl MCH 25 L (28-32) pg MCHC 31 L (32-34) % RDW 17.3 H (13.2-15.2) % Plt Count 647 H (140-440) K/mm3 Seg Neuts % (Manual) 89.0 H (40.0-70.0) % Lymphocytes % (Manual) 0 L (13.4-35.0) % Seg Neutrophils # Man 32.3 H (1.8-7.7) K/mm3 Lymphocytes # (Manual) 0.0 L (1.2-5.4) K/mm3 POC ABG pH (7.35-7.45) POC ABG pCO2 (35-45) Sodium 151 H D (137-145) mmol/L Potassium 3.5 L D (3.6-5.0) mmol/L Chloride 115.1 H (98-107) mmol/L Carbon Dioxide 19 L (22-30) mmol/L BUN 48 H (9-20) mg/dL Creatinine 1.6 H (0.8-1.5) mg/dL Glucose 105 H (75-100) mg/dL Calcium 6.3 L D (8.4-10.2) mg/dL AST 51 H (5-40) units/L Total Protein 5.6 L D (6.3-8.2) g/dL Albumin 1.8 L (3.9-5) g/dL Urine WBC (Auto) (0.0-6.0) /HPF Crossmatch - Imaging and Cardiology Chest x-ray: image reviewed (no evidence of acute lung disease) Assessment and Plan 61 y/o male with end stage MS, currently on home hospice but full code, admitted with sepsis with severe shock and encephalopathy with metabolic acidosis. 1. Long discussion with EYAL Valdez over the phone. She is the mother of the patient's son. She states that she is aware of how sick the patient is currently and that this state is likely not reversible and if he were to make it, that his baseline would be worse than before and that his quality of life would be even more worse than before. She has elected to not have chest compressions or intubation but would like to continue vasopressor therapy. She asks for this as their son is currently incarcerated and she is attempting to get him here to pay his respects to this father. We will continue the current care veronica the wishes of the POA. Overall prognosis remains poor and despite our efforts, I explained to her that he could undergo cardiac arrest and pass at any time. She expresses understanding of this. CCt 31 minutes.
[2016-10-18] MEDS: VANCOMYCIN/NS 500 MG/100 ML 100 ML IV SCH (12:36)
--- NOTE | 2016-10-18 12:53 | Progress Note ---
Assessment and Plan Assessment and plan: This is a 61-year-old man who was sent from custodial for hypotension and altered mental status 1. Sepsis Source is most likely from multiple decubitus ulcers, obtain blood cultures and urine cultures, chest x-ray shows no infiltrates Broad-spectrum antibiotics, follow-up cultures, if patient stabilizes we'll consider surgery consult for possible debridement of decubitus ulcers Continue bicarbonate drip, continue broad-spectrum antibiotics, continue sepsis protocol 2. Metabolic encephalopathy Treat underlying cause, treat sepsis and hypotension aggressively 3. Acute kidney injury Likely due to sepsis and obstructive uropathy, status post Sanderson placement and IV resuscitation, her improving 4. Hyperkalemia Likely due to obstructive uropathy and acute kidney injury, improving 5. Multiple decubitus ulcers Wound care consult, if patient's improves, we'll consult surgery for debridement of decubitus ulcers 6. Anemia Status post transfusion, keep hemoglobin above 10 I have spoken in length with his next of kin/ POA Aissatou Valdez and, at . Even though she understands that he has very poor prognosis, she now states that she would like for him to be made DO NOT RESUSCITATE, however she will also continue vasopressors and full medical therapy. She is hoping to keep him alive so that his son who is incarcerated will be able to pay his respects Critical care time spent 35 minutes History Interval history: Patient continues to be obtunded, requiring vasopressors towards the maximum up to the Levophed drip. Hospitalist Physical - Physical exam Narrative exam: General: Patient is obtunded, nonresponsive HEENT: MMM, EOMI cardiac: S1-S2 heard lungs: clear to auscultation, abdomen: soft, nontender, nondistended bowel sounds positive extremities: no edema clubbing or cyanosis Skin: Multiple decubitus ulcers of different stages in bilateral hip bilateral Buttocks, left heel, sacrum Neuro: Contractures in all 4 extremities, nonresponsive - Constitutional Vitals: Temp Pulse Resp BP Pulse Ox 98.3 F 85 8 L 115/50 100 10/18/16 05:46 10/18/16 11:45 10/18/16 11:45 10/18/16 11:45 10/18/16 11:45 General appearance: Present: other (unresponsive) Results - Labs CBC & Chem 7: 10/18/16 08:30 10/18/16 08:30 Labs: Laboratory Last Values WBC 36.3 K/mm3 (4.5-11.0) H 10/18/16 08:30 RBC 4.33 M/mm3 (3.65-5.03) 10/18/16 08:30 Hgb 10.7 gm/dl (11.8-15.2) L D 10/18/16 08:30 Hct 34.2 % (35.5-45.6) L D 10/18/16 08:30 MCV 79 fl (84-94) L 10/18/16 08:30 MCH 25 pg (28-32) L 10/18/16 08:30 MCHC 31 % (32-34) L 10/18/16 08:30 RDW 17.3 % (13.2-15.2) H 10/18/16 08:30 Plt Count 647 K/mm3 (140-440) H 10/18/16 08:30 [place] % (Auto) 5.0 % (0.0-7.3) 10/17/16 04:28 Eos % (Auto) 0.0 % (0.0-4.3) 10/17/16 04:28 [place] # 2.1 K/mm3 (0.0-0.8) H 10/17/16 04:28 Add Manual Diff Complete 10/18/16 08:30 Total Counted 200 10/18/16 08:30 Seg Neutrophils % Project Engineering Director 10/18/16 08:30 Seg Neuts % (Manual) 89.0 % (40.0-70.0) H 10/18/16 08:30 Band Neutrophils % 9.5 % 10/18/16 08:30 Lymphocytes % (Manual) 0 % (13.4-35.0) L 10/18/16 08:30 Reactive Lymphs % (Man) 0 % 10/18/16 08:30 Monocytes % (Manual) 1.5 % (0.0-7.3) 10/18/16 08:30 Eosinophils % (Manual) 0 % (0.0-4.3) 10/18/16 08:30 Basophils % (Manual) 0 % (0.0-1.8) 10/18/16 08:30 Metamyelocytes % 0 % 10/18/16 08:30 Myelocytes % 0 % 10/18/16 08:30 Promyelocytes % 0 % 10/18/16 08:30 Blast Cells % 0 % 10/18/16 08:30 Nucleated RBC % Not Reportable 10/18/16 08:30 Seg Neutrophils # 38.4 K/mm3 (1.8-7.7) H 10/17/16 04:28 Seg Neutrophils # Man 32.3 K/mm3 (1.8-7.7) H 10/18/16 08:30 Band Neutrophils # 3.4 K/mm3 10/18/16 08:30 Lymphocytes # (Manual) 0.0 K/mm3 (1.2-5.4) L 10/18/16 08:30 Abs React Lymphs (Man) 0.0 K/mm3 10/18/16 08:30 Monocytes # (Manual) 0.5 K/mm3 (0.0-0.8) 10/18/16 08:30 Eosinophils # (Manual) 0.0 K/mm3 (0.0-0.4) 10/18/16 08:30 Basophils # (Manual) 0.0 K/mm3 (0.0-0.1) 10/18/16 08:30 Metamyelocytes # 0.0 K/mm3 10/18/16 08:30 Myelocytes # 0.0 K/mm3 10/18/16 08:30 Promyelocytes # 0.0 K/mm3 10/18/16 08:30 Blast Cells # 0.0 K/mm3 10/18/16 08:30 WBC Morphology Not Reportable 10/18/16 08:30 Hypersegmented Neuts Not Reportable 10/18/16 08:30 Hyposegmented Neuts Not Reportable 10/18/16 08:30 Hypogranular Neuts Not Reportable 10/18/16 08:30 Smudge Cells Not Reportable 10/18/16 08:30 Toxic Granulation Not Reportable 10/18/16 08:30 Toxic Vacuolation Not Reportable 10/18/16 08:30 Dohle Bodies 1+ 10/18/16 08:30 Pelger-Huet Anomaly Not Reportable 10/18/16 08:30 Erich Rods Not Reportable 10/18/16 08:30 Platelet Estimate Appears increased 10/18/16 08:30 Clumped Platelets Not Reportable 10/18/16 08:30 Plt Clumps, EDTA Not Reportable 10/18/16 08:30 Large Platelets Not Reportable 10/18/16 08:30 Giant Platelets Not Reportable 10/18/16 08:30 Platelet Satelliting Not Reportable 10/18/16 08:30 Plt Morphology Comment Not Reportable 10/18/16 08:30 RBC Morphology Not Reportable 10/18/16 08:30 Dimorphic RBCs Not Reportable 10/18/16 08:30 Polychromasia Rare 10/18/16 08:30 Hypochromasia 1+ 10/18/16 08:30 Poikilocytosis Not Reportable 10/18/16 08:30 Anisocytosis 1+ 10/18/16 08:30 Microcytosis Not Reportable 10/18/16 08:30 Macrocytosis Not Reportable 10/18/16 08:30 Spherocytes Not Reportable 10/18/16 08:30 Pappenheimer Bodies Not Reportable 10/18/16 08:30 Sickle Cells Not Reportable 10/18/16 08:30 Target Cells Not Reportable 10/18/16 08:30 Tear Drop Cells Not Reportable 10/18/16 08:30 Ovalocytes Not Reportable 10/18/16 08:30 Helmet Cells Not Reportable 10/18/16 08:30 [place] Bodies Not Reportable 10/18/16 08:30 Fisher Rings Not Reportable 10/18/16 08:30 [place] Cells Not Reportable 10/18/16 08:30 Bite Cells Not Reportable 10/18/16 08:30 Crenated Cell Not Reportable 10/18/16 08:30 Elliptocytes Rare 10/18/16 08:30 Acanthocytes (Spur) Not Reportable 10/18/16 08:30 Rouleaux Not Reportable 10/18/16 08:30 Hemoglobin C Crystals Not Reportable 10/18/16 08:30 Schistocytes Not Reportable 10/18/16 08:30 Malaria parasites Not Reportable 10/18/16 08:30 Yandel Bodies Not Reportable 10/18/16 08:30 Hem Pathologist Commnt No 10/18/16 08:30 POC ABG pH 7.139 (7.35-7.45) L 10/18/16 05:17 POC ABG pCO2 52.9 (35-45) H 10/18/16 05:17 POC ABG pO2 101 (80-105) 10/18/16 05:17 POC ABG HCO3 18.0 10/18/16 05:17 POC ABG Total CO2 20 10/18/16 05:17 POC ABG O2 Sat 95 10/18/16 05:17 POC ABG Base Excess -11 10/18/16 05:17 FiO2 100 % 10/18/16 05:17 Sodium 151 mmol/L (137-145) H D 10/18/16 08:30 Potassium 3.5 mmol/L (3.6-5.0) L D 10/18/16 08:30 Chloride 115.1 mmol/L (98-107) H 10/18/16 08:30 Carbon Dioxide 19 mmol/L (22-30) L 10/18/16 08:30 Anion Gap 20 mmol/L 10/18/16 08:30 BUN 48 mg/dL (9-20) H 10/18/16 08:30 Creatinine 1.6 mg/dL (0.8-1.5) H 10/18/16 08:30 Estimated GFR 53 ml/min 10/18/16 08:30 BUN/Creatinine Ratio 30.00 % 10/18/16 08:30 Glucose 105 mg/dL (75-100) H 10/18/16 08:30 Lactic Acid 0.8 mmol/L (0.7-2.0) 10/17/16 15:48 Calcium 6.3 mg/dL (8.4-10.2) L D 10/18/16 08:30 Total Bilirubin 0.5 mg/dL (0.1-1.2) 10/18/16 08:30 AST 51 units/L (5-40) H 10/18/16 08:30 ALT 39 units/L (7-56) 10/18/16 08:30 Alkaline Phosphatase 118 units/L (35-129) 10/18/16 08:30 Total Protein 5.6 g/dL (6.3-8.2) L D 10/18/16 08:30 Albumin 1.8 g/dL (3.9-5) L 10/18/16 08:30 Albumin/Globulin Ratio 0.5 % 10/18/16 08:30 Urine Color Yellow (Yellow) 10/17/16 11:57 Urine Turbidity Turbid (Clear) 10/17/16 11:57 Urine pH 7.0 (5.0-7.0) 10/17/16 11:57 Ur Specific [place] 1.015 (1.003-1.030) 10/17/16 11:57 Urine Protein 100 mg/dl mg/dL (Negative) 10/17/16 11:57 Urine Glucose (UA) Neg mg/dL (Negative) 10/17/16 11:57 Urine Ketones Neg mg/dL (Negative) 10/17/16 11:57 Urine Blood Mod (Negative) 10/17/16 11:57 Urine Nitrite Neg (Negative) 10/17/16 11:57 Urine Bilirubin Neg (Negative) 10/17/16 11:57 Urine Urobilinogen < 2.0 mg/dL (<2.0) 10/17/16 11:57 Ur Leukocyte Esterase Mod (Negative) 10/17/16 11:57 Urine WBC (Auto) > 182.0 /HPF (0.0-6.0) H 10/17/16 11:57 Urine RBC (Auto) 37.0 /HPF (0.0-6.0) 10/17/16 11:57 Urine WBC Clumps 2+ /HPF 10/17/16 11:57 Amorphous Crystals 3+ 10/17/16 11:57 Blood Type B POSITIVE 10/17/16 15:37 Antibody Screen Negative 10/17/16 15:37 Crossmatch See Detail 10/17/16 15:37
[2016-10-18] MEDS: LEVOPHED 8 MG in NACL 0.9% 250ML 242 ML IV SCH ×3 (13:29→23:15)
[2016-10-19] MEDS: LEVOPHED 8 MG in NACL 0.9% 250ML 242 ML IV SCH ×3 (03:10→20:13)
[2016-10-19] MEDS: SODIUM BICARBONATE 150 MEQ in D5W 1,000 ML IV SCH ×3 (03:10→20:39)
[2016-10-19] MEDS ORDERED: TYLENOL PR ONE (04:07)
[2016-10-19] MEDS ORDERED: TYLENOL PR PRN (05:46)
[2016-10-19 08:19] LABS: Hematocrit 37.2 % (35.5-45.6); Hemoglobin 11.8 gm/dl (11.8-15.2); Mean Corpuscular HGB Conc 32 % (32-34); Mean Corpuscular Volume 77 fl (84-94); Platelet Count 583 K/mm3 (140-440); Red Blood Count 4.82 M/mm3 (3.65-5.03); Red Cell Distribution Width 17.6 % (13.2-15.2)
[2016-10-19 08:26] LABS: Mean Corpuscular Hemoglobin 25 pg (28-32)
[2016-10-19 08:29] LABS: White Blood Count 40.4 K/mm3 (4.5-11.0)
[2016-10-19 08:35] LABS: BUN/Creatinine Ratio 26.66; Calcium 7.1 mg/dL (8.4-10.2); Chloride 112.3 mmol/L (98-107); Potassium 3.3 mmol/L (3.6-5.0)
[2016-10-19] MEDS: ZOSYN/NS 2.25 GM/50ML 50 ML IV SCH ×3 (10:05→21:53)
[2016-10-19] MEDS: VANCOMYCIN/NS 500 MG/100 ML 100 ML IV SCH (10:06)
[2016-10-19] MEDS: KCL 20MEQ/100ML 100 ML IV SCH ×4 (10:06→19:39)
[2016-10-19 10:13] LABS: Basophils % (Manual) 0 % (0.0-1.8); Blastocytes % (Manual) 0 %; Eosinophils % (Manual) 0 % (0.0-4.3)
[2016-10-19 10:14] LABS: Anisocytosis 1+; Hypochromasia 1+
[2016-10-19 10:15] LABS: Diff Status Complete
[2016-10-19] MEDS: LEVAQUIN 500MG/100ML 100 ML IV SCH (10:58)
--- NOTE | 2016-10-19 11:16 | Progress Note ---
Assessment and Plan 61 y/o male with end stage MS, currently on home hospice but full code, admitted with sepsis with severe shock and encephalopathy with metabolic acidosis. 1. Long discussion again today with EYAL. I explained to her that the patient' s status is not better and it is actually worse. He soley dependent on vasopressor therapy for life sustaining BP. I have explained to her that this is the end point and that in my professional opinion comfort measures would be more than reasonable in this patient. She expresses that she wishes to continue vasopressor support and that she is aware that this is end of life. She states that she will be coming to the hospital later today. She also expresses understanding that the current level of care could also be harmful, and in the patient's current state could be and is likely causing, more harm than good. For now, will continue current vasopressor therapy. Will not escalate. Overall prognosis is very poor. CCt 31 minutes. Subjective Date of service: 10/19/16 Interval history: No acute events. Spoke with EYAL this am. She wants to continue with vasopressor therapy. Objective - Constitutional Vitals: Vital Signs - 12hr 10/18/16 10/18/16 10/18/16 23:16 23:30 23:46 Temperature Pulse Rate 106 H 106 H 108 H Respiratory 18 18 18 Rate Blood Pressure 119/68 120/68 120/68 O2 Sat by Pulse 90 91 91 Oximetry 10/19/16 10/19/16 10/19/16 00:00 00:16 00:30 Temperature 100.6 F H Pulse Rate 109 H 106 H 106 H Respiratory 19 18 18 Rate Blood Pressure 116/71 116/71 117/67 O2 Sat by Pulse 92 91 90 Oximetry 10/19/16 10/19/16 10/19/16 00:46 01:00 01:08 Temperature Pulse Rate 106 H 113 H 110 H Respiratory 18 21 20 Rate Blood Pressure 117/67 117/67 132/75 O2 Sat by Pulse 92 92 92 Oximetry 10/19/16 10/19/16 10/19/16 01:10 01:12 01:16 Temperature Pulse Rate 109 H 110 H 108 H Respiratory 19 18 19 Rate Blood Pressure 132/75 132/75 132/75 O2 Sat by Pulse 92 92 92 Oximetry 10/19/16 10/19/16 10/19/16 01:30 01:46 02:00 Temperature Pulse Rate 107 H 110 H 107 H Respiratory 19 20 18 Rate Blood Pressure 128/69 128/69 125/68 O2 Sat by Pulse 92 93 92 Oximetry 10/19/16 10/19/16 10/19/16 02:16 02:30 02:46 Temperature Pulse Rate 108 H 110 H 108 H Respiratory 19 20 19 Rate Blood Pressure 125/68 124/70 124/70 O2 Sat by Pulse 93 93 94 Oximetry 10/19/16 10/19/16 10/19/16 03:00 03:10 03:12 Temperature Pulse Rate 110 H 113 H 111 H Respiratory 19 20 20 Rate Blood Pressure 130/75 130/75 130/75 O2 Sat by Pulse 93 94 94 Oximetry 10/19/16 10/19/16 10/19/16 03:16 03:30 03:46 Temperature Pulse Rate 109 H 113 H 107 H Respiratory 20 20 19 Rate Blood Pressure 130/75 132/76 132/76 O2 Sat by Pulse 94 94 95 Oximetry 10/19/16 10/19/16 10/19/16 04:00 04:16 04:30 Temperature Pulse Rate 110 H 110 H 108 H Respiratory 19 19 18 Rate Blood Pressure 122/73 122/73 124/69 O2 Sat by Pulse 95 96 94 Oximetry 10/19/16 10/19/16 10/19/16 04:46 05:00 05:16 Temperature Pulse Rate 107 H 119 H 106 H Respiratory 17 24 17 Rate Blood Pressure 124/69 124/69 123/75 O2 Sat by Pulse 95 92 95 Oximetry 10/19/16 10/19/16 10/19/16 05:30 05:46 05:52 Temperature Pulse Rate 105 H 104 H 107 H Respiratory 18 18 18 Rate Blood Pressure 108/46 108/46 108/46 O2 Sat by Pulse 96 97 97 Oximetry 10/19/16 10/19/16 10/19/16 06:00 06:16 08:00 Temperature 99.6 F Pulse Rate 111 H 116 H Respiratory 18 19 Rate Blood Pressure 123/55 123/55 O2 Sat by Pulse 97 98 Oximetry 10/19/16 08:18 Temperature Pulse Rate Respiratory Rate Blood Pressure O2 Sat by Pulse 100 Oximetry General appearance: Present: cachectic, disheveled, malodorous, other ( unresponsive) - Labs CBC & Chem 7: 10/19/16 08:03 10/19/16 08:03 Labs: Abnormal lab results 10/19/16 10/19/16 Range/Units 08:03 08:03 WBC 40.4 H* (4.5-11.0) K/mm3 MCV 77 L (84-94) fl MCH 25 L (28-32) pg RDW 17.6 H (13.2-15.2) % Plt Count 583 H (140-440) K/mm3 Lymphocytes % (Manual) 3.0 L (13.4-35.0) % Seg Neutrophils # Man 27.5 H (1.8-7.7) K/mm3 Monocytes # (Manual) 1.2 H (0.0-0.8) K/mm3 Sodium 155 H (137-145) mmol/L Potassium 3.3 L (3.6-5.0) mmol/L Chloride 112.3 H (98-107) mmol/L BUN 48 H (9-20) mg/dL Creatinine 1.8 H (0.8-1.5) mg/dL Glucose 122 H (75-100) mg/dL Calcium 7.1 L (8.4-10.2) mg/dL
--- NOTE | 2016-10-19 12:06 | Progress Note ---
Assessment and Plan Assessment and plan: This is a 61-year-old man who was sent from alf for hypotension and altered mental status 1. Sepsis Source is most likely from multiple decubitus ulcers, obtain blood cultures and urine cultures, chest x-ray shows no infiltrates Broad-spectrum antibiotics, follow-up cultures, if patient stabilizes we'll consider surgery consult for possible debridement of decubitus ulcers metabolic acidosis now resolved, dc bicarbonate drip, continue broad-spectrum antibiotics, continue sepsis protocol 2. Metabolic encephalopathy Treat underlying cause, treat sepsis and hypotension aggressively 3. Acute kidney injury Likely due to sepsis and obstructive uropathy, status post Sanderson placement and IV resuscitation, improving 4. Hyperkalemia Likely due to obstructive uropathy and acute kidney injury,now resolved 5. Multiple decubitus ulcers Wound care consult, if patient's improves, we'll consult surgery for debridement of decubitus ulcers 6. Anemia Status post transfusion, keep hemoglobin above 10 I have spoken in length with his next of kin/ POA Aissatou Valdez and, at [phone]. Even though she understands that he has very poor prognosis, she now states that she would like for him to be made DO NOT RESUSCITATE, however she will also continue vasopressors and full medical therapy. She is hoping to keep him alive so that his son who is incarcerated will be able to pay his respects Critical care time spent 35 minutes History Interval history: Patient continues to be obtunded, requiring vasopressors towards the maximum up to the Levophed drip. Hospitalist Physical - Physical exam Narrative exam: General: Patient is obtunded, nonresponsive HEENT: MMM, EOMI cardiac: S1-S2 heard lungs: clear to auscultation, abdomen: soft, nontender, nondistended bowel sounds positive extremities: no edema clubbing or cyanosis Skin: Multiple decubitus ulcers of different stages in bilateral hip bilateral Buttocks, left heel, sacrum Neuro: Contractures in all 4 extremities, nonresponsive - Constitutional Vitals: Temp Pulse Resp BP Pulse Ox 99.6 F 116 H 19 123/55 100 10/19/16 08:00 10/19/16 06:16 10/19/16 06:16 10/19/16 06:16 10/19/16 08:18 General appearance: Present: cachectic, disheveled, malodorous, other ( unresponsive) Results - Labs CBC & Chem 7: 10/19/16 08:03 10/19/16 08:03 Labs: Laboratory Last Values WBC 40.4 K/mm3 (4.5-11.0) H* 10/19/16 08:03 RBC 4.82 M/mm3 (3.65-5.03) 10/19/16 08:03 Hgb 11.8 gm/dl (11.8-15.2) 10/19/16 08:03 Hct 37.2 % (35.5-45.6) 10/19/16 08:03 MCV 77 fl (84-94) L 10/19/16 08:03 MCH 25 pg (28-32) L 10/19/16 08:03 MCHC 32 % (32-34) 10/19/16 08:03 RDW 17.6 % (13.2-15.2) H 10/19/16 08:03 Plt Count 583 K/mm3 (140-440) H 10/19/16 08:03 [place] % (Auto) 5.0 % (0.0-7.3) 10/17/16 04:28 Eos % (Auto) 0.0 % (0.0-4.3) 10/17/16 04:28 [place] # 2.1 K/mm3 (0.0-0.8) H 10/17/16 04:28 Add Manual Diff Complete 10/19/16 08:03 Total Counted 100 10/19/16 08:03 Seg Neutrophils % Barn Operator 10/19/16 08:03 Seg Neuts % (Manual) 68.0 % (40.0-70.0) 10/19/16 08:03 Band Neutrophils % 26.0 % 10/19/16 08:03 Lymphocytes % (Manual) 3.0 % (13.4-35.0) L 10/19/16 08:03 Reactive Lymphs % (Man) 0 % 10/19/16 08:03 Monocytes % (Manual) 3.0 % (0.0-7.3) 10/19/16 08:03 Eosinophils % (Manual) 0 % (0.0-4.3) 10/19/16 08:03 Basophils % (Manual) 0 % (0.0-1.8) 10/19/16 08:03 Metamyelocytes % 0 % 10/19/16 08:03 Myelocytes % 0 % 10/19/16 08:03 Promyelocytes % 0 % 10/19/16 08:03 Blast Cells % 0 % 10/19/16 08:03 Nucleated RBC % Not Reportable 10/19/16 08:03 Seg Neutrophils # 38.4 K/mm3 (1.8-7.7) H 10/17/16 04:28 Seg Neutrophils # Man 27.5 K/mm3 (1.8-7.7) H 10/19/16 08:03 Band Neutrophils # 10.5 K/mm3 10/19/16 08:03 Lymphocytes # (Manual) 1.2 K/mm3 (1.2-5.4) 10/19/16 08:03 Abs React Lymphs (Man) 0.0 K/mm3 10/19/16 08:03 Monocytes # (Manual) 1.2 K/mm3 (0.0-0.8) H 10/19/16 08:03 Eosinophils # (Manual) 0.0 K/mm3 (0.0-0.4) 10/19/16 08:03 Basophils # (Manual) 0.0 K/mm3 (0.0-0.1) 10/19/16 08:03 Metamyelocytes # 0.0 K/mm3 10/19/16 08:03 Myelocytes # 0.0 K/mm3 10/19/16 08:03 Promyelocytes # 0.0 K/mm3 10/19/16 08:03 Blast Cells # 0.0 K/mm3 10/19/16 08:03 WBC Morphology Not Reportable 10/19/16 08:03 Hypersegmented Neuts Not Reportable 10/19/16 08:03 Hyposegmented Neuts Not Reportable 10/19/16 08:03 Hypogranular Neuts Not Reportable 10/19/16 08:03 Smudge Cells Not Reportable 10/19/16 08:03 Toxic Granulation Not Reportable 10/19/16 08:03 Toxic Vacuolation Not Reportable 10/19/16 08:03 Dohle Bodies Not Reportable 10/19/16 08:03 Pelger-Huet Anomaly Not Reportable 10/19/16 08:03 Erich Rods Not Reportable 10/19/16 08:03 Platelet Estimate Not Reportable 10/19/16 08:03 Clumped Platelets Not Reportable 10/19/16 08:03 Plt Clumps, EDTA Not Reportable 10/19/16 08:03 Large Platelets Not Reportable 10/19/16 08:03 Giant Platelets Not Reportable 10/19/16 08:03 Platelet Satelliting Not Reportable 10/19/16 08:03 Plt Morphology Comment Not Reportable 10/19/16 08:03 RBC Morphology Not Reportable 10/19/16 08:03 Dimorphic RBCs Not Reportable 10/19/16 08:03 Polychromasia Not Reportable 10/19/16 08:03 Hypochromasia 1+ 10/19/16 08:03 Poikilocytosis Not Reportable 10/19/16 08:03 Anisocytosis 1+ 10/19/16 08:03 Microcytosis Not Reportable 10/19/16 08:03 Macrocytosis Not Reportable 10/19/16 08:03 Spherocytes Not Reportable 10/19/16 08:03 Pappenheimer Bodies Not Reportable 10/19/16 08:03 Sickle Cells Not Reportable 10/19/16 08:03 Target Cells Not Reportable 10/19/16 08:03 Tear Drop Cells Not Reportable 10/19/16 08:03 Ovalocytes Not Reportable 10/19/16 08:03 Helmet Cells Not Reportable 10/19/16 08:03 [place] Bodies Not Reportable 10/19/16 08:03 [place] Rings Not Reportable 10/19/16 08:03 [place] Cells Not Reportable 10/19/16 08:03 Bite Cells Not Reportable 10/19/16 08:03 Crenated Cell Not Reportable 10/19/16 08:03 Elliptocytes Not Reportable 10/19/16 08:03 Acanthocytes (Spur) Not Reportable 10/19/16 08:03 Rouleaux Not Reportable 10/19/16 08:03 Hemoglobin C Crystals Not Reportable 10/19/16 08:03 Schistocytes Not Reportable 10/19/16 08:03 Malaria parasites Not Reportable 10/19/16 08:03 [place] Bodies Not Reportable 10/19/16 08:03 Hem Pathologist Commnt No 10/19/16 08:03 POC ABG pH 7.139 (7.35-7.45) L 10/18/16 05:17 POC ABG pCO2 52.9 (35-45) H 10/18/16 05:17 POC ABG pO2 101 (80-105) 10/18/16 05:17 POC ABG HCO3 18.0 10/18/16 05:17 POC ABG Total CO2 20 10/18/16 05:17 POC ABG O2 Sat 95 10/18/16 05:17 POC ABG Base Excess -11 10/18/16 05:17 FiO2 100 % 10/18/16 05:17 Sodium 155 mmol/L (137-145) H 10/19/16 08:03 Potassium 3.3 mmol/L (3.6-5.0) L 10/19/16 08:03 Chloride 112.3 mmol/L (98-107) H 10/19/16 08:03 Carbon Dioxide 27 mmol/L (22-30) D 10/19/16 08:03 Anion Gap 19 mmol/L 10/19/16 08:03 BUN 48 mg/dL (9-20) H 10/19/16 08:03 Creatinine 1.8 mg/dL (0.8-1.5) H 10/19/16 08:03 Estimated GFR 46 ml/min 10/19/16 08:03 BUN/Creatinine Ratio 26.66 % 10/19/16 08:03 Glucose 122 mg/dL (75-100) H 10/19/16 08:03 POC Glucose 102 (70-105) 10/18/16 08:56 Lactic Acid 0.8 mmol/L (0.7-2.0) 10/17/16 15:48 Calcium 7.1 mg/dL (8.4-10.2) L 10/19/16 08:03 Total Bilirubin 0.5 mg/dL (0.1-1.2) 10/18/16 08:30 AST 51 units/L (5-40) H 10/18/16 08:30 ALT 39 units/L (7-56) 10/18/16 08:30 Alkaline Phosphatase 118 units/L (35-129) 10/18/16 08:30 Total Protein 5.6 g/dL (6.3-8.2) L D 10/18/16 08:30 Albumin 1.8 g/dL (3.9-5) L 10/18/16 08:30 Albumin/Globulin Ratio 0.5 % 10/18/16 08:30 Urine Color Yellow (Yellow) 10/17/16 11:57 Urine Turbidity Turbid (Clear) 10/17/16 11:57 Urine pH 7.0 (5.0-7.0) 10/17/16 11:57 Ur Specific [place] 1.015 (1.003-1.030) 10/17/16 11:57 Urine Protein 100 mg/dl mg/dL (Negative) 10/17/16 11:57 Urine Glucose (UA) Neg mg/dL (Negative) 10/17/16 11:57 Urine Ketones Neg mg/dL (Negative) 10/17/16 11:57 Urine Blood Mod (Negative) 10/17/16 11:57 Urine Nitrite Neg (Negative) 10/17/16 11:57 Urine Bilirubin Neg (Negative) 10/17/16 11:57 Urine Urobilinogen < 2.0 mg/dL (<2.0) 10/17/16 11:57 Ur Leukocyte Esterase Mod (Negative) 10/17/16 11:57 Urine WBC (Auto) > 182.0 /HPF (0.0-6.0) H 10/17/16 11:57 Urine RBC (Auto) 37.0 /HPF (0.0-6.0) 10/17/16 11:57 Urine WBC Clumps 2+ /HPF 10/17/16 11:57 Amorphous Crystals 3+ 10/17/16 11:57 Blood Type B POSITIVE 10/17/16 15:37 Antibody Screen Negative 10/17/16 15:37 Crossmatch See Detail 10/17/16 15:37
--- NOTE | 2016-10-19 12:44 | XRay Report ---
Portable chest: There is marked elevation of the right hemidiaphragm with crowded right lung markings. There is resulting volume loss of the right lung and possible mild atelectasis in the midlung region. There is a small nodular density overlying the mid to lower left lung. This is not visualized on the prior exam of October 17 however the technique is considerably different. Mediastinal contours grossly normal. The left PICC line tip appears to be withdrawn from its previous location but is still well within the SVC. Impression: 1. The technical differences between the current and prior exam make comparison somewhat difficult. There is still however probable atelectasis on the right possibly resulting from elevated hemidiaphragm. There are no obvious effusions and the left lung base is better visualized than on prior study. 2. Low suspicion of a pulmonary nodule.
[2016-10-19] MEDS ORDERED: NS/KCL 20MEQ 1,000 ML IV SCH (13:00)
[2016-10-20] MEDS: ZOSYN/NS 2.25 GM/50ML 50 ML IV SCH ×2 (05:31→13:46)
[2016-10-20] MEDS: LEVAQUIN 500MG/100ML 100 ML IV SCH (09:59)
[2016-10-20] MEDS: VANCOMYCIN/NS 500 MG/100 ML 100 ML IV SCH (09:59)
[2016-10-20 10:34] LABS: Chloride 111.1 mmol/L (98-107); Potassium 3.5 mmol/L (3.6-5.0)
--- NOTE | 2016-10-20 11:16 | Progress Note ---
Assessment and Plan 61 y/o male with end stage MS, currently on home hospice but full code, admitted with sepsis with severe shock and encephalopathy with metabolic acidosis. 10/20/16: Overall prognosis remains poor. No family here and POA not here. Not sure if she came on yesterday. Currently on levophed. [place] candidate for hospice and full AND. 10/19/16 Long discussion again today with POA. I explained to her that the patient's status is not better and it is actually worse. He soley dependent on vasopressor therapy for life sustaining BP. I have explained to her that this is the end point and that in my professional opinion comfort measures would be more than reasonable in this patient. She expresses that she wishes to continue vasopressor support and that she is aware that this is end of life. She states that she will be coming to the hospital later today. She also expresses understanding that the current level of care could also be harmful, and in the patient's current state could be and is likely causing, more harm than good. For now, will continue current vasopressor therapy. Will not escalate. Overall prognosis is very poor. CCt 31 minutes. Subjective Date of service: 10/20/16 Interval history: Clinically not improved. Nursing attempted to wean pressor but now back up at 15 and will need more as MAP is low. No family at bedside. Objective - Constitutional Vitals: Vital Signs - 12hr 10/19/16 10/19/16 10/20/16 23:30 23:45 00:00 Temperature 98.5 F Pulse Rate 101 H 101 H 100 H Respiratory 15 16 Rate Blood Pressure 109/53 96/53 O2 Sat by Pulse 100 100 Oximetry 10/20/16 10/20/16 10/20/16 00:30 01:00 01:30 Temperature Pulse Rate 100 H 99 H 102 H Respiratory 15 15 17 Rate Blood Pressure 103/53 92/56 105/50 O2 Sat by Pulse 100 100 Oximetry 10/20/16 10/20/16 10/20/16 01:49 02:00 02:30 Temperature Pulse Rate 103 H 104 H 110 H Respiratory 18 18 22 Rate Blood Pressure 111/56 109/57 124/56 O2 Sat by Pulse 100 100 97 Oximetry 10/20/16 10/20/16 10/20/16 02:43 02:45 03:00 Temperature Pulse Rate 112 H 113 H 113 H Respiratory 22 22 23 Rate Blood Pressure 124/56 115/58 123/55 O2 Sat by Pulse 98 98 96 Oximetry 10/20/16 10/20/16 10/20/16 03:31 03:54 04:00 Temperature 98.4 F Pulse Rate 108 H 103 H Respiratory 25 H 28 H Rate Blood Pressure 121/57 110/49 O2 Sat by Pulse 97 100 Oximetry 10/20/16 10/20/16 10/20/16 04:31 05:00 05:29 Temperature Pulse Rate 112 H 105 H 106 H Respiratory 24 22 22 Rate Blood Pressure 110/49 112/64 105/58 O2 Sat by Pulse 94 97 99 Oximetry 10/20/16 10/20/16 10/20/16 05:30 06:00 06:30 Temperature Pulse Rate 106 H 106 H 105 H Respiratory 22 22 23 Rate Blood Pressure 105/58 102/54 105/52 O2 Sat by Pulse 99 Oximetry 10/20/16 10/20/16 10/20/16 07:00 07:15 07:30 Temperature Pulse Rate 105 H 106 H 106 H Respiratory 24 25 H 25 H Rate Blood Pressure 100/55 93/53 91/52 O2 Sat by Pulse 98 Oximetry 10/20/16 10/20/16 10/20/16 07:46 07:58 08:00 Temperature 97.6 F Pulse Rate 107 H Respiratory 26 H Rate Blood Pressure 90/48 O2 Sat by Pulse 95 95 Oximetry 10/20/16 10/20/16 10/20/16 08:05 08:30 09:00 Temperature Pulse Rate 108 H 110 H 111 H Respiratory 26 H 28 H 28 H Rate Blood Pressure 90/48 108/53 99/51 O2 Sat by Pulse 94 Oximetry 10/20/16 10/20/16 10/20/16 09:30 09:56 10:00 Temperature Pulse Rate 112 H 113 H 115 H Respiratory 29 H 30 H 31 H Rate Blood Pressure 88/50 102/54 101/54 O2 Sat by Pulse 96 97 Oximetry 10/20/16 10/20/16 10:30 11:00 Temperature Pulse Rate 113 H 112 H Respiratory 31 H 32 H Rate Blood Pressure 84/48 81/46 O2 Sat by Pulse 96 Oximetry General appearance: Present: cachectic, disheveled, malodorous - Respiratory Respiratory effort: labored Respiratory: bilateral: diminished - Cardiovascular Rhythm: regular (tachy) Extremities: abnormal (contracted) - Labs CBC & Chem 7: 10/19/16 08:03 10/20/16 09:45 Labs: Abnormal lab results 10/20/16 Range/Units 09:45 Sodium 160 H (137-145) mmol/L Potassium 3.5 L (3.6-5.0) mmol/L Chloride 111.1 H (98-107) mmol/L Carbon Dioxide 34 H D (22-30) mmol/L BUN 45 H (9-20) mg/dL Glucose 113 H (75-100) mg/dL Calcium 7.0 L (8.4-10.2) mg/dL
[2016-10-20] MEDS ORDERED: VANCOMYCIN/NS 500 MG/100 ML 100 ML IV SCH ×2 (12:00→13:00)
--- NOTE | 2016-10-20 12:50 | Progress Note ---
Assessment and Plan Assessment and plan: This is a 61-year-old man who was sent from skilled nursing for hypotension and altered mental status 1. Sepsis Source is most likely from multiple decubitus ulcers, obtain blood cultures and urine cultures, chest x-ray shows no infiltrates Broad-spectrum antibiotics, follow-up cultures, if patient stabilizes we'll consider surgery consult for possible debridement of decubitus ulcers metabolic acidosis now resolved, dc bicarbonate drip, continue broad-spectrum antibiotics, continue sepsis protocol 2. Metabolic encephalopathy Treat underlying cause, treat sepsis and hypotension aggressively 3. Acute kidney injury Likely due to sepsis and obstructive uropathy, status post Sanderson placement and IV resuscitation, improving 4. Hyperkalemia Likely due to obstructive uropathy and acute kidney injury,now resolved 5. Multiple decubitus ulcers Wound care consult, if patient's improves, we'll consult surgery for debridement of decubitus ulcers 6. Anemia Status post transfusion, keep hemoglobin above 10 7. Hypernatremia. Hypokalemia start D5W drip containing KCl I have spoken in length with his next of kin/ POA Aissatou Valdez and, at . Even though she understands that he has very poor prognosis, she now states that she would like for him to be made DO NOT RESUSCITATE, however she will also continue vasopressors and full medical therapy. She is hoping to keep him alive so that his son who is incarcerated will be able to pay his respects Critical care time spent 35 minutes History Interval history: Patient continues to be obtunded, requiring vasopressors towards the maximum up to the Levophed drip. Hospitalist Physical - Physical exam Narrative exam: General: Patient is obtunded, nonresponsive HEENT: MMM, EOMI cardiac: S1-S2 heard lungs: clear to auscultation, abdomen: soft, nontender, nondistended bowel sounds positive extremities: no edema clubbing or cyanosis Skin: Multiple decubitus ulcers of different stages in bilateral hip bilateral Buttocks, left heel, sacrum Neuro: Contractures in all 4 extremities, nonresponsive - Constitutional Vitals: Temp Pulse Resp BP Pulse Ox 98.4 F 118 H 34 H 94/53 91 10/20/16 11:59 10/20/16 12:00 10/20/16 12:00 10/20/16 12:00 10/20/16 12:00 General appearance: Present: cachectic, disheveled, malodorous Results - Labs CBC & Chem 7: 10/19/16 08:03 10/20/16 09:45 Labs: Laboratory Last Values WBC 40.4 K/mm3 (4.5-11.0) H* 10/19/16 08:03 RBC 4.82 M/mm3 (3.65-5.03) 10/19/16 08:03 Hgb 11.8 gm/dl (11.8-15.2) 10/19/16 08:03 Hct 37.2 % (35.5-45.6) 10/19/16 08:03 MCV 77 fl (84-94) L 10/19/16 08:03 MCH 25 pg (28-32) L 10/19/16 08:03 MCHC 32 % (32-34) 10/19/16 08:03 RDW 17.6 % (13.2-15.2) H 10/19/16 08:03 Plt Count 583 K/mm3 (140-440) H 10/19/16 08:03 [place] % (Auto) 5.0 % (0.0-7.3) 10/17/16 04:28 Eos % (Auto) 0.0 % (0.0-4.3) 10/17/16 04:28 [place] # 2.1 K/mm3 (0.0-0.8) H 10/17/16 04:28 Add Manual Diff Complete 10/19/16 08:03 Total Counted 100 10/19/16 08:03 Seg Neutrophils % Manager Ambulatory 10/19/16 08:03 Seg Neuts % (Manual) 68.0 % (40.0-70.0) 10/19/16 08:03 Band Neutrophils % 26.0 % 10/19/16 08:03 Lymphocytes % (Manual) 3.0 % (13.4-35.0) L 10/19/16 08:03 Reactive Lymphs % (Man) 0 % 10/19/16 08:03 Monocytes % (Manual) 3.0 % (0.0-7.3) 10/19/16 08:03 Eosinophils % (Manual) 0 % (0.0-4.3) 10/19/16 08:03 Basophils % (Manual) 0 % (0.0-1.8) 10/19/16 08:03 Metamyelocytes % 0 % 10/19/16 08:03 Myelocytes % 0 % 10/19/16 08:03 Promyelocytes % 0 % 10/19/16 08:03 Blast Cells % 0 % 10/19/16 08:03 Nucleated RBC % Not Reportable 10/19/16 08:03 Seg Neutrophils # 38.4 K/mm3 (1.8-7.7) H 10/17/16 04:28 Seg Neutrophils # Man 27.5 K/mm3 (1.8-7.7) H 10/19/16 08:03 Band Neutrophils # 10.5 K/mm3 10/19/16 08:03 Lymphocytes # (Manual) 1.2 K/mm3 (1.2-5.4) 10/19/16 08:03 Abs React Lymphs (Man) 0.0 K/mm3 10/19/16 08:03 Monocytes # (Manual) 1.2 K/mm3 (0.0-0.8) H 10/19/16 08:03 Eosinophils # (Manual) 0.0 K/mm3 (0.0-0.4) 10/19/16 08:03 Basophils # (Manual) 0.0 K/mm3 (0.0-0.1) 10/19/16 08:03 Metamyelocytes # 0.0 K/mm3 10/19/16 08:03 Myelocytes # 0.0 K/mm3 10/19/16 08:03 Promyelocytes # 0.0 K/mm3 10/19/16 08:03 Blast Cells # 0.0 K/mm3 10/19/16 08:03 WBC Morphology Not Reportable 10/19/16 08:03 Hypersegmented Neuts Not Reportable 10/19/16 08:03 Hyposegmented Neuts Not Reportable 10/19/16 08:03 Hypogranular Neuts Not Reportable 10/19/16 08:03 Smudge Cells Not Reportable 10/19/16 08:03 Toxic Granulation Not Reportable 10/19/16 08:03 Toxic Vacuolation Not Reportable 10/19/16 08:03 Dohle Bodies Not Reportable 10/19/16 08:03 Pelger-Huet Anomaly Not Reportable 10/19/16 08:03 Erich Rods Not Reportable 10/19/16 08:03 Platelet Estimate Not Reportable 10/19/16 08:03 Clumped Platelets Not Reportable 10/19/16 08:03 Plt Clumps, EDTA Not Reportable 10/19/16 08:03 Large Platelets Not Reportable 10/19/16 08:03 Giant Platelets Not Reportable 10/19/16 08:03 Platelet Satelliting Not Reportable 10/19/16 08:03 Plt Morphology Comment Not Reportable 10/19/16 08:03 RBC Morphology Not Reportable 10/19/16 08:03 Dimorphic RBCs Not Reportable 10/19/16 08:03 Polychromasia Not Reportable 10/19/16 08:03 Hypochromasia 1+ 10/19/16 08:03 Poikilocytosis Not Reportable 10/19/16 08:03 Anisocytosis 1+ 10/19/16 08:03 Microcytosis Not Reportable 10/19/16 08:03 Macrocytosis Not Reportable 10/19/16 08:03 Spherocytes Not Reportable 10/19/16 08:03 Pappenheimer Bodies Not Reportable 10/19/16 08:03 Sickle Cells Not Reportable 10/19/16 08:03 Target Cells Not Reportable 10/19/16 08:03 Tear Drop Cells Not Reportable 10/19/16 08:03 Ovalocytes Not Reportable 10/19/16 08:03 Helmet Cells Not Reportable 10/19/16 08:03 [place] Bodies Not Reportable 10/19/16 08:03 [place] Rings Not Reportable 10/19/16 08:03 [place] Cells Not Reportable 10/19/16 08:03 Bite Cells Not Reportable 10/19/16 08:03 Crenated Cell Not Reportable 10/19/16 08:03 Elliptocytes Not Reportable 10/19/16 08:03 Acanthocytes (Spur) Not Reportable 10/19/16 08:03 Rouleaux Not Reportable 10/19/16 08:03 Hemoglobin C Crystals Not Reportable 10/19/16 08:03 Schistocytes Not Reportable 10/19/16 08:03 Malaria parasites Not Reportable 10/19/16 08:03 [place]andel Bodies Not Reportable 10/19/16 08:03 Hem Pathologist Commnt No 10/19/16 08:03 POC ABG pH 7.139 (7.35-7.45) L 10/18/16 05:17 POC ABG pCO2 52.9 (35-45) H 10/18/16 05:17 POC ABG pO2 101 (80-105) 10/18/16 05:17 POC ABG HCO3 18.0 10/18/16 05:17 POC ABG Total CO2 20 10/18/16 05:17 POC ABG O2 Sat 95 10/18/16 05:17 POC ABG Base Excess -11 10/18/16 05:17 FiO2 100 % 10/18/16 05:17 Sodium 160 mmol/L (137-145) H 10/20/16 09:45 Potassium 3.5 mmol/L (3.6-5.0) L 10/20/16 09:45 Chloride 111.1 mmol/L (98-107) H 10/20/16 09:45 Carbon Dioxide 34 mmol/L (22-30) H D 10/20/16 09:45 Anion Gap 18 mmol/L 10/20/16 09:45 BUN 45 mg/dL (9-20) H 10/20/16 09:45 Creatinine 1.5 mg/dL (0.8-1.5) 10/20/16 09:45 Estimated GFR 57 ml/min 10/20/16 09:45 BUN/Creatinine Ratio 30.00 % 10/20/16 09:45 Glucose 113 mg/dL (75-100) H 10/20/16 09:45 POC Glucose 139 (70-105) H 10/20/16 11:23 Lactic Acid 0.8 mmol/L (0.7-2.0) 10/17/16 15:48 Calcium 7.0 mg/dL (8.4-10.2) L 10/20/16 09:45 Total Bilirubin 0.5 mg/dL (0.1-1.2) 10/18/16 08:30 AST 51 units/L (5-40) H 10/18/16 08:30 ALT 39 units/L (7-56) 10/18/16 08:30 Alkaline Phosphatase 118 units/L (35-129) 10/18/16 08:30 Total Protein 5.6 g/dL (6.3-8.2) L D 10/18/16 08:30 Albumin 1.8 g/dL (3.9-5) L 10/18/16 08:30 Albumin/Globulin Ratio 0.5 % 10/18/16 08:30 Urine Color Yellow (Yellow) 10/17/16 11:57 Urine Turbidity Turbid (Clear) 10/17/16 11:57 Urine pH 7.0 (5.0-7.0) 10/17/16 11:57 Ur Specific [place] 1.015 (1.003-1.030) 10/17/16 11:57 Urine Protein 100 mg/dl mg/dL (Negative) 10/17/16 11:57 Urine Glucose (UA) Neg mg/dL (Negative) 10/17/16 11:57 Urine Ketones Neg mg/dL (Negative) 10/17/16 11:57 Urine Blood Mod (Negative) 10/17/16 11:57 Urine Nitrite Neg (Negative) 10/17/16 11:57 Urine Bilirubin Neg (Negative) 10/17/16 11:57 Urine Urobilinogen < 2.0 mg/dL (<2.0) 10/17/16 11:57 Ur Leukocyte Esterase Mod (Negative) 10/17/16 11:57 Urine WBC (Auto) > 182.0 /HPF (0.0-6.0) H 10/17/16 11:57 Urine RBC (Auto) 37.0 /HPF (0.0-6.0) 10/17/16 11:57 Urine WBC Clumps 2+ /HPF 10/17/16 11:57 Amorphous Crystals 3+ 10/17/16 11:57 Vancomycin Trough 9.5 ug/mL (5.0-20.0) 10/20/16 09:45 Blood Type B POSITIVE 10/17/16 15:37 Antibody Screen Negative 10/17/16 15:37 Crossmatch See Detail 10/17/16 15:37
[2016-10-20] MEDS ORDERED: D5W 1,000 ML IV SCH (13:00)
[2016-10-20] MEDS ORDERED: D5W 1,000 ML with KCL 20 MEQ IV SCH (14:00)
[2016-10-20 14:25] VITALS: BP 95/54
[2016-10-20 14:40] LABS: Hematocrit 34.9 % (35.5-45.6); Hemoglobin 10.6 gm/dl (11.8-15.2); Mean Corpuscular HGB Conc 31 % (32-34); Mean Corpuscular Volume 81 fl (84-94); Platelet Count 446 K/mm3 (140-440); Red Blood Count 4.31 M/mm3 (3.65-5.03); Red Cell Distribution Width 18.2 % (13.2-15.2)
[2016-10-20 14:49] LABS: Mean Corpuscular Hemoglobin 25 pg (28-32)
[2016-10-20] MEDS: LEVOPHED 8 MG in NACL 0.9% 250ML 242 ML IV SCH (14:54)
--- NOTE | 2016-10-20 15:24 | XRay Report ---
Portable abdomen: History: NG tube placement. Findings: Tip of NG tube is noted in the fundus of the stomach. No bowel distention. Impression: Tip of NG tube in stomach.
--- NOTE | 2016-10-20 17:53 | Event Note ---
note called to assess patient, no signs of life, pulseless, Patient , Time of 1524. Patient DNR, family made aware.
--- NOTE | 2016-10-20 17:54 | Discharge Summary ---
Providers - Providers Date of Admission: 10/17/16 09:30 Attending physician: DENA MCNULTY MD 10/17/16 09:32 Consult to Physician [CONS] Routine Consulting Provider: GURU BRAGG Reason For Exam: ICU admission Place consult to:: office Notified:: yes Phone number called:: [phone] Was contact made?: Yes If yes, spoke with:: Marla Time called:: 09:50 10/17/16 09:47 Consult to Wound/ET Nurse [CONS] Routine Reason For Exam: wound eval 10/20/16 15:00 Consult to Dietitian/Nutrition [CONS] Routine Physician Instructions: Reason For Exam: Reason for Consult: Write/Manage Tube Feeding Primary care physician: LYNN DOMINGO Hospitalization Condition: Stable Hospital course: Goran is a 61M who has MS for 30 years, bed bound, multiple bed sores, sent from [place] for decreased responsiveness. He was found to have severe sepsis with multiorgan failure, suspected etiology included UTI and infected decubitus ulcers. He was admitted to ICU, rx with IVF, blood tranfusion for anemia, Broad spectrum abx and pressors. He had urinary obstruction for which suprapubic cath was placed by urology . He also received wound care for multiple decub ulcers. He continued to be pressor dependent and did not improve, given his poor prognosis and low quality of life, the decision was made by his POA to make him DNR but continue full treatment. Despite aggressive medical rx, he and his family was notified DC diagnosis 1. Sepsis 2. Metabolic encephalopathy Treat underlying cause, treat sepsis and hypotension aggressively 3. Acute kidney injury 4. Hyperkalemia 5. Multiple decubitus ulcers 6. Anemia 7. Hypernatremia. Hypokalemia Disposition: Time spent for discharge: 35 minutes Core Measure Documentation - Palliative Care Palliative Care/ Comfort Measures: Not Applicable - Core Measures Any of the following diagnoses?: none Exam - Physical Exam Narrative exam: N/A- - Constitutional Vitals: Temp Pulse Resp BP Pulse Ox 98.4 F 115 H 36 H 95/54 80 L 10/20/16 11:59 10/20/16 14:00 10/20/16 14:00 10/20/16 14:00 10/20/16 13:31 Plan Follow up with: LYNN DOMINGO MD [Primary Care Provider] - 3-5 Days
[2016-10-21] MEDS ORDERED: VANCOMYCIN/NS 1 GM/250 ML 250 ML IV SCH (10:00)
== END 2016-10-20 15:25 | DRG 871 ==
LOC: ED 03:09 → CC1 09:30
PROVIDERS: ADMIT Internal Medicine; ATTEND Internal Medicine
PROC: 05HY33Z Insertion of Infusion Device into Upper Vein, Percutaneous Approach (ICD-10-PCS; principal; 2016-10-17)
PROC: 30233N1 Transfusion of Nonautologous Red Blood Cells into Peripheral Vein, Percutaneous Approach (ICD-10-PCS; 2016-10-17)
PROC: 4A033R1 Measurement of Arterial Saturation, Peripheral, Percutaneous Approach (ICD-10-PCS; 2016-10-17)
PROC: 4A033R1 Measurement of Arterial Saturation, Peripheral, Percutaneous Approach (ICD-10-PCS; 2016-10-18)
DX: A41.9 Sepsis, unspecified organism (principal); G93.41 Metabolic encephalopathy; R65.21 Severe sepsis with septic shock; N17.9 Acute kidney failure, unspecified; N39.0 Urinary tract infection, site not specified; E87.5 Hyperkalemia; L89.90 Pressure ulcer of unspecified site, unspecified stage; G35 Multiple sclerosis; I10 Essential (primary) hypertension; D64.9 Anemia, unspecified; Z66 Do not resuscitate; E87.6 Hypokalemia; N13.9 Obstructive and reflux uropathy, unspecified; Z74.01 Bed confinement status
CPT/HCPCS: 36415; 36600; 51702; 71010; 74000; 80048; 80053; 80202; 81001; 82140; 82803; 82962; 85007; 85025; 85027; 86850; 86900; 86901; 86920; 87040; 87086; 94760; 96361; 96365; 96366; C1769; C2627; J1956; J2543; J3370; J3480; J7030; J7040; J7050; J7070; P9016